=== PATIENT | female | born 1975 | race Hispanic/Latino ===

== ENCOUNTER 2020-03-08 18:01 | Emergency (ER) | payer SELFPAY ==
[2020-03-08 18:46] LABS: Basophils % 1.4 % (0-1.3); Hematocrit 41.6 % (36.0-45.0); Lymphocytes % 39.6 % (15.3-44.8); MPV 7.4 fL (7.6-11.3); RBC Red Blood Cell Count 4.58 M/uL (3.86-4.86)
[2020-03-08 18:54] LABS: Protime INR 1.01
--- NOTE | 2020-03-08 18:54 | RAD REPORT ---
EXAM DESCRIPTION: CT - Ct Stroke Brain Wo Cont - 03/08/2020 6:33 pm CLINICAL HISTORY: Weakness;Numbness, left-sided weakness for 1 hour, hypertension COMPARISON: No comparisons TECHNIQUE: Axial 5 millimeter thick images of the head were obtained without IV contrast. All CT scans are performed using dose optimization technique as appropriate and may include automated exposure control or mA/KV adjustment according to patient size. FINDINGS: No intracranial hemorrhage, mass, or cerebral edema. No acute cortical based infarction. N o cortical edema or sulcal effacement. Ventricles are normal. No extra-axial fluid collections. Mallory matter-white matter differentiation is preserved. Visualized portions of the mastoid air cells, paranasal sinuses, and orbits are unremarkable. Findings telephoned to the referring physician 6:50 p.m. IMPRESSION: No intracranial hemorrhage. No acute infarction identifiable. If the patient has continued, unexplained neurologic deficits, MR imaging could be performed.
[2020-03-08 19:03] LABS: Potassium 3.7 mmol/L (3.5-5.1)
--- NOTE | 2020-03-08 20:09 | ER ---
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 Coronavirus screen: At this time, the client does not indicate any symptoms associated with coronavirus-19. Ebola Screen: Patient negative for fever greater than or equal to 101.5 degrees Fahrenheit, and additional compatible Ebola Virus Disease symptoms Patient denies exposure to infectious person. Patient denies travel to an Ebola-affected area in the 21 days before illness onset. No symptoms or risks identified at this time. Initial Sepsis Screen: Does the patient meet any 2 criteria? No. Patient's initial sepsis screen is negative. Does the patient have a suspected source of infection? No. Patient's initial sepsis screen is negative. Risk Assessment: Do you want to hurt yourself or someone else? Patient reports no desire to harm self or others. Onset of symptoms was March 08, 2020 at 17:50. 18:18 Method Of Arrival: Ambulatory iw 18:18 Acuity: VJ 2 iw Triage Assessment: 20:22 General: Appears in no apparent distress. comfortable, Behavior is calm, cooperative. ls4 GI: Reports normal bowel habits, Pain is 0 out of 10 on a pain scale. tolerance of fluids, tolerance of food. Historical: - Allergies: 18:21 No Known Allergies; iw - Home Meds: 18:21 Tylenol #3 Oral [Active]; iw - PMHx: 18:21 Pancreatitis; Asthma; iw - PSHx: 18:21 ; Cholecystectomy; iw Screenin:22 The patient has not been NPO before screening. The patient is alert, able to follow ls4 commands. The patient does not exhibit slurred or garbled speech The patient is not exhibiting difficulty speaking. The patient does not exhibit difficulty understanding words. The patient is able to swallow own secretions with no drooling or need for suction. Patient tolerated one teaspoon of water. No drooling, immediate coughing, gurgling, or clearing of the throat was noted. The patient tolerated 90mL of water. No drooling, immediate coughing, gurgling, or clearing of the throat was noted. The patient passed the bedside swallow screening. Oral medications may be given as ordered. Contact Physician for further diet orders. 19:43 Abuse screen: Denies threats or abuse. Denies injuries from another. Nutritional ls4 screening: No deficits noted. Tuberculosis screening: No symptoms or risk factors identified. Fall Risk None identified. 20:56 VAN Screening: Arm Drift: Minor drift. ls4 Assessment: 18:22 Pain: Denies pain. ls4 18:22 Neuro: Level of Consciousness is awake, alert, obeys commands, Oriented to person, ls4 place, time, situation, Ticket Marker are weak on left Weakness in left arm(s) leg(s) Gait is steady, Speech is normal, Facial symmetry appears normal, Pupils are PERRLA, Intact Numbness in left leg and left arm. GI: Abdomen is non-distended, Bowel sounds present X 4 quads. Abd is soft and non tender X 4 quads. 18:40 Reassessment: Dr. Delcid notified that patient is now back in exam room 16. ss 19:30 Reassessment: Patient appears in no apparent distress at this time. Patient and/or ls4 family updated on plan of care and expected duration. Pain level reassessed. Patient is alert, oriented x 3, equal unlabored respirations, skin warm/dry/pink. 20:45 Reassessment: Patient appears in no apparent distress at this time. Patient and/or ls4 family updated on plan of care and expected duration. Pain level reassessed. Patient is alert, oriented x 3, equal unlabored respirations, skin warm/dry/pink. Patient states symptoms have improved. 20:53 Neuro: Ticket Marker are equal bilaterally Full function in bilateral Denies numbness in left ls4 cheek, left sikhism and left jaw. Vital Signs: 18:18 BP 111 / 69; Pulse 88; Resp 16; Temp 97.4; Pulse Ox 97% on R/A; iw 20:48 BP 106 / 72; Pulse 93; Resp 16; Temp 97.6(O); Pulse Ox 97% on R/A; Pain 0/10; ls4 NIH Stroke Scale Scores: 18:22 NIHSS Score: 2 ls4 18:22 NIHSS Score: 0 ls4 20:21 NIHSS Score: 2 [facility] ED Course: 18:03 Patient arrived in ED. mr 18:20 Triage completed. iw 18:21 No provider procedures requiring assistance completed. ls4 18:21 Patient has correct armband on for positive identification. Bed in low position. Call ls4 light in reach. Side rails up X 1. 18:21 school bus monitor on. Pulse ox on. NIBP on. Warm blanket given. Verbal reassurance given. ls4 18:22 Arm band placed on. ls4 18:33 CT Stroke Brain w/o Contrast In Process Unspecified. EDMS 18:38 Inserted saline lock: 20 gauge in right antecubital area, using aseptic technique. ss Blood collected. 19:00 Chris Rock MD is Attending Physician. mh7 19:[address] [facility]. Spoke with Ivone Peterson needing neuro for possible ar5 stroke. 19:32 Nuerologist called back spoke with Dr. Rock, neuro accepted. ar5 19:41 Colette Alford, RN is Primary Nurse. ls4 19:47 Stroke CXR 1 View In Process Unspecified. EDMS 19:51 Dr. Rock spoke with hospitalist Dr. Bowser, she accepted pt. ar5 20:15 Acceptance given by Ivone Peterson. Pt. going to [facility] rm. [id number]. Accepting ar[address] Luli Bowser. Report called to [phone]. 20:20 [facility] with be here in 40-45 minutes to transfer pt. to [facility]. ar5 20:29 Head angio In Process Unspecified. EDMS 20:29 Neck Angio In Process Unspecified. EDMS 21:14 Glucose, Ancillary Testing Sent. ls4 23:05 Patient transferred, IV remains in place. vc Administered Medications: 20:35 Drug: Aspirin Chewable Tablet 324 mg Route: PO; ls4 21:14 Follow up: Response: No adverse reaction; Marked relief of symptoms ls4 Outcome: 20:09 ER care complete, transfer ordered by . 7 23:04 Transferred by ground EMS to [facility], Transfer form completed. vc 23:04 Condition: good 23:04 Instructed on the need for transfer. 23:05 Patient left the ED. NIH Stroke Scale - NIH Stroke Score Date: 03/08/2020 Time: 18:22 Total Score = 2 1a. Level of Consciousness (LOC) - 0(Alert) 1b. Level of Consciousness (LOC) (Year \T\ Age) - 0(Both) 1c. LOC Commands (Open \T\ Closes Eyes/Inpatient Services Director) - 0(Both) 2. Best Gaze (Lateral Gaze Paresis) - 0(Normal) 3. Visual Field Loss - 0(No visual loss) 4. Facial Palsy - 0(Normal) 5a. Left Arm: Motor (10-second hold) - 1(Drift) 5b. Right Arm: Motor (10-second hold) - 0(No drift) 6a. Left Leg: Motor (5-second hold - always test supine) - 1(Drift) 6b. Right Leg: Motor (5-second hold - always test supine) - 0(No drift) 7. Limb Ataxia (finger/nose \T\ heel/masters - test with eyes open) - 0(Absent) 8. Sensory Loss (pinprick arms/legs/face) - 0(Normal) 9. Best Language: Aphasia (description/naming/reading) - 0(No aphasia) 10. Dysarthria (speech clarity - read or repeat words) - 0(Normal) 11. Extinction and Inattention (visual/tactile/auditory/spatial/personal) - 0(No abnormality) Initials: ls4 NIH Stroke Scale - NIH Stroke Score Date: 03/08/2020 Time: 18:22 Total Score = 0 1a. Level of Consciousness (LOC) - 0(Alert) 1b. Level of Consciousness (LOC) (Year \T\ Age) - 0(Both) 1c. LOC Commands (Open \T\ Closes Eyes/Inpatient Services Director) - 0(Both) 2. Best Gaze (Lateral Gaze Paresis) - 0(Normal) 3. Visual Field Loss - 0(No visual loss) 4. Facial Palsy - 0(Normal) 5a. Left Arm: Motor (10-second hold) - 0(No drift) 5b. Right Arm: Motor (10-second hold) - 0(No drift) 6a. Left Leg: Motor (5-second hold - always test supine) - 0(No drift) 6b. Right Leg: Motor (5-second hold - always test supine) - 0(No drift) 7. Limb Ataxia (finger/nose \T\ heel/masters - test with eyes open) - 0(Absent) 8. Sensory Loss (pinprick arms/legs/face) - 0(Normal) 9. Best Language: Aphasia (description/naming/reading) - 0(No aphasia) 10. Dysarthria (speech clarity - read or repeat words) - 0(Normal) 11. Extinction and Inattention (visual/tactile/auditory/spatial/personal) - 0(No abnormality) Initials: ls4 NIH Stroke Scale - NIH Stroke Score Date: 03/08/2020 Time: 20:21 Total Score = 2 1a. Level of Consciousness (LOC) - 0(Alert) 1b. Level of Consciousness (LOC) (Year \T\ Age) - 0(Both) 1c. LOC Commands (Open \T\ Closes Eyes/Inpatient Services Director) - 0(Both) 2. Best Gaze (Lateral Gaze Paresis) - 0(Normal) 3. Visual Field Loss - 0(No visual loss) 4. Facial Palsy - 0(Normal) 5a. Left Arm: Motor (10-second hold) - 1(Drift) 5b. Right Arm: Motor (10-second hold) - 0(No drift) 6a. Left Leg: Motor (5-second hold - always test supine) - 1(Drift) 6b. Right Leg: Motor (5-second hold - always test supine) - 0(No drift) 7. Limb Ataxia (finger/nose \T\ heel/masters - test with eyes open) - 0(Absent) 8. Sensory Loss (pinprick arms/legs/face) - 0(Normal) 9. Best Language: Aphasia (description/naming/reading) - 0(No aphasia) 10. Dysarthria (speech clarity - read or repeat words) - 0(Normal) 11. Extinction and Inattention (visual/tactile/auditory/spatial/personal) - 0(No abnormality) Initials: 7 Signatures: Dispatcher [employer] Christina Grover Nishi Brown RN RN iw Libertad Patel RN RN ss Stewart, Lisa, RN RN ls4 Karena Bang ar5 Hannah Monroe RN RN vc Holmes, Maurice, MD MD 7 Corrections: (The following items were deleted from the chart) 19:51 19:43 NIHSS Score: 2 ls4 ls4
--- NOTE | 2020-03-08 20:09 | EDPHYS ---
Physician Documentation [facility] Name: Alayna Galdamez Age: 44 yrs Sex: Female : 1975 Arrival Date: 03/08/2020 Time: 18:03 Bed 16 Private MD: ED Physician Chris Rock HPI: 03/08 19:19 This 44 yrs old Female presents to ER via Ambulatory with complaints of mh7 Numbness Of Face, Numbness Of Arm, Dizziness, Nausea. 19:20 The patient's problem is reported as paresthesias, in left upper extremity, in left mh7 side of face, weakness, in the left upper extremity. The patient's problem is reported as dysphasia, expressive aphasia. Onset: The symptoms/episode began/occurred just prior to arrival, today. Duration: The episode is continuous. Context: the episode(s) was witnessed, by family, , symptoms became apparent at 17:50. occurred at a store, occurred while the patient was standing, Possible contributing factors include:. The symptoms are alleviated by nothing. The symptoms are aggravated by nothing. Associated signs and symptoms: Pertinent positives: dizziness, nausea, numbness, tingling. Associated signs and symptoms: Pertinent positives: weakness, Pertinent negatives: abdominal pain, agitation, ataxia, blurred vision, chest pain, combativeness, confusion, diaphoresis, diarrhea, headache, palpitations, seizure, shortness of breath, vertigo, vomiting. Severity of symptoms: At their worst the symptoms were moderate today, in the emergency department the symptoms have improved moderately. Historical: - Allergies: 18:21 No Known Allergies; iw - Home Meds: 18:21 Tylenol #3 Oral [Active]; iw - PMHx: 18:21 Pancreatitis; Asthma; iw - PSHx: 18:21 ; Cholecystectomy; iw ROS: 19:20 Constitutional: Negative for fever, chills, and weight loss, Eyes: Negative for injury, mh7 pain, redness, and discharge, ENT: Negative for injury, pain, and discharge, Neck: Negative for injury, pain, and swelling, Cardiovascular: Negative for chest pain, palpitations, and edema, Respiratory: Negative for shortness of breath, cough, wheezing, and pleuritic chest pain, Abdomen/GI: Negative for abdominal pain, nausea, vomiting, diarrhea, and constipation, Back: Negative for injury and pain, : Negative for injury, bleeding, discharge, and swelling, Skin: Negative for injury, rash, and discoloration, Psych: Negative for depression, anxiety, suicide ideation, homicidal ideation, and hallucinations, Allergy/Immunology: Negative for hives, rash, and allergies, Endocrine: Negative for neck swelling, polydipsia, polyuria, polyphagia, and marked weight changes, Hematologic/Lymphatic: Negative for swollen nodes, abnormal bleeding, and unusual bruising. Exam: 19:20 Radiologist reports: No acute findings [facility] 19:20 Head/Face: Normocephalic, atraumatic. Eyes: Pupils equal round and reactive to light, extra-ocular motions intact. Lids and lashes normal. Conjunctiva and sclera are non-icteric and not injected. Cornea within normal limits. Periorbital areas with no swelling, redness, or edema. Neck: Trachea midline, no thyromegaly or masses palpated, and no cervical lymphadenopathy. Supple, full range of motion without nuchal rigidity, or vertebral point tenderness. No Meningismus. Chest/axilla: Normal chest wall appearance and motion. Nontender with no deformity. No lesions are appreciated. Cardiovascular: Regular rate and rhythm with a normal S1 and S2. No gallops, murmurs, or rubs. Normal PMI, no JVD. No pulse deficits. Respiratory: Lungs have equal breath sounds bilaterally, clear to auscultation and percussion. No rales, rhonchi or wheezes noted. No increased work of breathing, no retractions or nasal flaring. Abdomen/GI: Soft, non-tender, with normal bowel sounds. No distension or tympany. No guarding or rebound. No evidence of tenderness throughout. Back: No spinal tenderness. No costovertebral tenderness. Full range of motion. Skin: Warm, dry with normal turgor. Normal color with no rashes, no lesions, and no evidence of cellulitis. 19:20 Constitutional: The patient appears in no acute distress, alert, awake, comfortable. 19:20 Musculoskeletal/extremity: Extremities: ROM: limited active range of motion, in the left arm, Circulation is intact in all extremities. Pulses: are normal with no appreciated deficits, Perfusion: the patient is normally perfused throughout, Perfusion: the extremity is normally perfused throughout, Sensation intact. Compartment Syndrome exam of affected extremity: is normal. no pain, no sensation deficit, no palor, no weak pulses, Joints: All joints appear normal with full range of motion. 19:20 Neuro: Orientation: is normal, Mentation: is normal, Memory: is normal, Cranial nerves: grossly normal, Cerebellar function: Romberg testing is abnormal, mild drift left upper extremity, normal finger to nose testing, heel to masters testing is normal, Motor: moves all fours, strength is 5/5 in the right arm and right leg and left leg, strength is 4/5 in the left arm, the no evidence of posturing, Sensation: is normal, Gait: is steady, at a normal pace, without difficulty, Deep tendon reflexes are normal, Babinski testing is normal, seizure activity, is not displayed by the patient, Abnormal movements: there are no abnormal movements. 20:21 Psych: Awake, alert, with orientation to person, place and time. Behavior, mood, and [facility] affect are within normal limits. Vital Signs: 18:18 BP 111 / 69; Pulse 88; Resp 16; Temp 97.4; Pulse Ox 97% on R/A; iw 20:48 BP 106 / 72; Pulse 93; Resp 16; Temp 97.6(O); Pulse Ox 97% on R/A; Pain 0/10; ls4 NIH Stroke Scale Scores: 18:22 NIHSS Score: 2 ls4 18:22 NIHSS Score: 0 ls4 20:21 NIHSS Score: 2 [facility] MDM: 19:12 Patient medically screened. [facility] 20:06 Differential diagnosis: CVA, TIA, paralysis, metabolic disorder, drug effects. Data [facility] reviewed: vital signs, nurses notes, lab test result(s), radiologic studies, CT scan, plain films. Data interpreted: Pulse oximetry: on room air is 97 %. Interpretation: normal. Counseling: I had a detailed discussion with the patient and/or guardian regarding: the historical points, exam findings, and any diagnostic results supporting the discharge/admit diagnosis, lab results, radiology results, the need to transfer to another facility, for higher level of care, [facility] does not immediately have the required specialist. 03/09 06:50 Response to treatment: the patient's symptoms have resolved after treatment, the [facility] patient's blood pressure is in an acceptable range, mental status has returned to baseline, the patient no longer shows bradycardia, the patient is not short of breath, the patient is not tachycardic, the patient's pain is gone, the patient's temperature has normalized. ED course: Discussed with Neurology at [facility] who accepted for transfer. Recommended no TPA due rapidly improved symptoms.. 03/08 18:42 Order name: Basic Metabolic Panel; Complete Time: 19:13 03/08 18:42 Order name: CBC with Diff; Complete Time: 19:13 03/08 18:42 Order name: Protime (+inr); Complete Time: 19:13 03/08 18:42 Order name: Ptt, Activated; Complete Time: 19:13 03/08 18:23 Order name: CT Stroke Brain w/o Contrast; Complete Time: 19:13 iw 03/08 18:42 Order name: Stroke CXR 1 View; Complete Time: 20:26 ss 03/08 19:24 Order name: Head angio; Complete Time: 06:49 EDMS 03/08 19:24 Order name: Neck Angio; Complete Time: 06:49 EDMS 03/08 20:47 Order name: Glucose, Ancillary Testing; Complete Time: 06:49 EDMS 03/08 20:47 Order name: Glucose, Ancillary Testing EDMS 03/08 21:54 Order name: SARS-COV-2 RT PCR; Complete Time: 06:49 EDMS 03/08 18:42 Order name: EKG; Complete Time: 18:42 03/08 18:42 Order name: Accucheck; Complete Time: 20:46 03/08 18:42 Order name: Cardiac monitoring; Complete Time: 20:47 03/08 18:42 Order name: EKG - Nurse/Tech; Complete Time: 21:14 03/08 18:42 Order name: IV Saline Lock; Complete Time: 20:47 03/08 18:42 Order name: Labs collected and sent; Complete Time: 20:47 03/08 18:42 Order name: NPO; Complete Time: 20:47 03/08 18:42 Order name: O2 Per Protocol; Complete Time: 20:47 03/08 18:42 Order name: O2 Sat Monitoring; Complete Time: 20:47 03/08 18:42 Order name: Stroke Swallow Screen; Complete Time: 20:47 ss 03/08 19:14 Order name: Urine Dipstick-Ancillary (obtain specimen); Complete Time: 20:29 [facility] 03/08 19:14 Order name: Urine Test (obtain specimen); Complete Time: 20:29 7 Administered Medications: 03/08 20:35 Drug: Aspirin Chewable Tablet 324 mg Route: PO; ls4 21:14 Follow up: Response: No adverse reaction; Marked relief of symptoms ls4 Disposition: 03/09 06:50 Co-signature as Attending Physician, Chris Rock MD. 7 Disposition: 03/08/20 20:09 Transfer ordered to [facility]. Diagnosis is Cerebral Vascular Accident. - Reason for transfer: Higher level of care. - Accepting physician is Dr. Bowser. - Condition is Stable. - Problem is new. - Symptoms have improved. NIH Stroke Scale - NIH Stroke Score Date: 03/08/2020 Time: 18:22 Total Score = 2 1a. Level of Consciousness (LOC) - 0(Alert) 1b. Level of Consciousness (LOC) (Year \T\ Age) - 0(Both) 1c. LOC Commands (Open \T\ Closes Eyes/Bleacher Lard) - 0(Both) 2. Best Gaze (Lateral Gaze Paresis) - 0(Normal) 3. Visual Field Loss - 0(No visual loss) 4. Facial Palsy - 0(Normal) 5a. Left Arm: Motor (10-second hold) - 1(Drift) 5b. Right Arm: Motor (10-second hold) - 0(No drift) 6a. Left Leg: Motor (5-second hold - always test supine) - 1(Drift) 6b. Right Leg: Motor (5-second hold - always test supine) - 0(No drift) 7. Limb Ataxia (finger/nose \T\ heel/masters - test with eyes open) - 0(Absent) 8. Sensory Loss (pinprick arms/legs/face) - 0(Normal) 9. Best Language: Aphasia (description/naming/reading) - 0(No aphasia) 10. Dysarthria (speech clarity - read or repeat words) - 0(Normal) 11. Extinction and Inattention (visual/tactile/auditory/spatial/personal) - 0(No abnormality) Initials: ls4 NIH Stroke Scale - NIH Stroke Score Date: 03/08/2020 Time: 18:22 Total Score = 0 1a. Level of Consciousness (LOC) - 0(Alert) 1b. Level of Consciousness (LOC) (Year \T\ Age) - 0(Both) 1c. LOC Commands (Open \T\ Closes Eyes/Bleacher Lard) - 0(Both) 2. Best Gaze (Lateral Gaze Paresis) - 0(Normal) 3. Visual Field Loss - 0(No visual loss) 4. Facial Palsy - 0(Normal) 5a. Left Arm: Motor (10-second hold) - 0(No drift) 5b. Right Arm: Motor (10-second hold) - 0(No drift) 6a. Left Leg: Motor (5-second hold - always test supine) - 0(No drift) 6b. Right Leg: Motor (5-second hold - always test supine) - 0(No drift) 7. Limb Ataxia (finger/nose \T\ heel/masters - test with eyes open) - 0(Absent) 8. Sensory Loss (pinprick arms/legs/face) - 0(Normal) 9. Best Language: Aphasia (description/naming/reading) - 0(No aphasia) 10. Dysarthria (speech clarity - read or repeat words) - 0(Normal) 11. Extinction and Inattention (visual/tactile/auditory/spatial/personal) - 0(No abnormality) Initials: ls4 NIH Stroke Scale - NIH Stroke Score Date: 03/08/2020 Time: 20:21 Total Score = 2 1a. Level of Consciousness (LOC) - 0(Alert) 1b. Level of Consciousness (LOC) (Year \T\ Age) - 0(Both) 1c. LOC Commands (Open \T\ Closes Eyes/Bleacher Lard) - 0(Both) 2. Best Gaze (Lateral Gaze Paresis) - 0(Normal) 3. Visual Field Loss - 0(No visual loss) 4. Facial Palsy - 0(Normal) 5a. Left Arm: Motor (10-second hold) - 1(Drift) 5b. Right Arm: Motor (10-second hold) - 0(No drift) 6a. Left Leg: Motor (5-second hold - always test supine) - 1(Drift) 6b. Right Leg: Motor (5-second hold - always test supine) - 0(No drift) 7. Limb Ataxia (finger/nose \T\ heel/masters - test with eyes open) - 0(Absent) 8. Sensory Loss (pinprick arms/legs/face) - 0(Normal) 9. Best Language: Aphasia (description/naming/reading) - 0(No aphasia) 10. Dysarthria (speech clarity - read or repeat words) - 0(Normal) 11. Extinction and Inattention (visual/tactile/auditory/spatial/personal) - 0(No abnormality) Initials: [facility] Signatures: Dispatcher [employer] [facility] Nishi Brown, SAM VARGAS Libertad Patel RN RN ss Colette Alford, SAM VARGAS ls4 Hannah Monroe RN RN vc Holmes, Maurice, MD MD 7 Corrections: (The following items were deleted from the chart) 03/08 20:26 19:20 Neuro: Orientation: is normal, Mentation: is normal, Memory: is normal, 7 Cranial nerves: grossly normal, Cerebellar function: Romberg testing is abnormal, mild drift left upper extremity, normal finger to nose testing, heel to masters testing is normal, Motor: moves all fours, strength is 5/5 in the right arm and right leg, [facility] 20:47 19:59 CORONAVIRUS+MR.LAB.CONSTANZAZ ordered. [facility] EDDC 23:05 20:09 03/08/2020 20:[address] [facility]. Diagnosis is Cerebral Vascular Accident. Reason for transfer: Higher level of care. Accepting physician is Dr. Bowser. Condition is Stable. Problem is new. Symptoms have improved. [facility]
--- NOTE | 2020-03-08 20:11 | RAD REPORT ---
EXAM DESCRIPTION: RAD - Chest Single View - 03/08/2020 7:47 pm CLINICAL HISTORY: stroke protocol COMPARISON: None TECHNIQUE: AP portable chest image was obtained 03/08/2020 7:47 pm . FINDINGS: Lungs are clear. Heart and vasculature are normal. No measurable pleural effusion and no p neumothorax. No acute bony abnormality seen. No acute aortic findings suspected. IMPRESSION: No acute cardiopulmonary process.
[2020-03-08] MEDS ORDERED: ASPIRIN 81 MG CHEWABLE TABLET ONE (20:43)
--- NOTE | 2020-03-08 20:49 | RAD REPORT ---
EXAM DESCRIPTION: CT - neck angio - 03/08/2020 8:29 pm CLINICAL HISTORY: possible stroke TECHNIQUE: During dynamic enhancement using nonionic IV contrast, axial 1 millimeter thick images of the neck were obtained. Sagittal and axial reconstruction images were generated using MIP technique and reviewed. All CT scans are performed using dose optimization technique as appropriate and may include automated exposure control or mA/KV adjustment according to patient size. COMPARISON: CT head same day FINDINGS: No aneurysm or vascular malformation identified. Major venous sinuses are patent. Minimal narrowing of the left common carotid artery origin. This is not significant degree of luminal narrowing. No other area of significant atherosclerotic change. No dissection, vasculitis or other s ignificant vascular finding. IMPRESSION: Non clinically significant narrowing of the left common carotid artery origin. No other significant or suspicious vascular finding.
--- NOTE | 2020-03-08 20:50 | RAD REPORT ---
EXAM DESCRIPTION: CT - head Angio - 03/08/2020 8:29 pm CLINICAL HISTORY: possible stroke TECHNIQUE: During dynamic enhancement using nonionic IV contrast, axial 1 millimeter thick images of the head were obtained. Sagittal and axial reconstruction images were generated using MIP technique and reviewed. All CT scans are performed using dose optimization technique as appropriate and may include automated exposure control or mA/KV adjustment according to patient size. COMPARISON: CT head same date, CTA neck same date FINDINGS: No aneurysm or vascular malformation identified. Major venous sinuses are patent. No stenosis, named branch occlusion, vasculitis or other significant vascular finding identifiable. IMPRESSION: Negative CT angio head examination.
== END 2020-03-08 23:05 | disposition short-term general hospital (02) ==
LOC: ER 18:01
DX: I63.9 Cerebral infarction, unspecified (principal); R29.702 NIHSS score 2
CPT/HCPCS: 36415; 70450; 70496; 70498; 71045; 80048; 82947; 85025; 85610; 85730; 99285; Q9967; U0003